=== PATIENT | male | born 1965 | race Caucasian/White ===

== ENCOUNTER 2023-05-28 11:11 | Inpatient (IN) | payer OTHER ==
[2023-05-28 11:55] VITALS: BMI 27.7
[2023-05-28] MEDS ORDERED: POLYETHYLENE GLYCOL (HEALTHYLAX) 3350 17 GM PACKET PO PRN (13:52)
[2023-05-28] MEDS ORDERED: IBUPROFEN 600 MG TABLET (FP) PO PRN (13:52)
[2023-05-28] MEDS ORDERED: ONDANSETRON *ODT* 4 MG TABLET SL PRN (13:52)
[2023-05-28] MEDS ORDERED: ACETAMINOPHEN 325 MG TABLET (FP) PO PRN (13:52)
[2023-05-28] MEDS ORDERED: NALOXONE HCL (KLOXXADO) 8 MG SPRAY NS PRN (13:52)
[2023-05-28] MEDS ORDERED: MAGNESIUM HYDROX 2400MG/30ML ORAL SUSPENSION 30 ML CUP PO PRN (13:52)
[2023-05-28] MEDS ORDERED: DICYCLOMINE HCL 10 MG CAPSULE PO PRN (13:52)
[2023-05-28] MEDS ORDERED: BENZONATATE 200 MG CAPSULE PO PRN (13:52)
[2023-05-28] MEDS ORDERED: guaiFENesin 600 MG TABLET.ER (FP) PO PRN (13:52)
[2023-05-28] MEDS ORDERED: BENZOCAINE/MENTHOL (CHLORASEPTIC ) LOZENGE MM PRN (13:52)
[2023-05-28] MEDS ORDERED: NICOTINE POLACRILEX 2 MG GUM BUC PRN (13:52)
[2023-05-28] MEDS ORDERED: LOPERAMIDE HCL 2 MG CAPSULE PO PRN (13:52)
[2023-05-28] MEDS ORDERED: IBUPROFEN 400 MG TABLET (FP) PO PRN (13:52)
[2023-05-28] MEDS ORDERED: MAG HYDROX/AL HYDROX/SIMETH 30 ML UNIT-DOSE CUP PO PRN (13:52)
[2023-05-28] MEDS ORDERED: BISMUTH SUBSALICYLATE 262 MG/15 ML BTL PO PRN (13:52)
[2023-05-28] MEDS ORDERED: NALOXONE HCL 0.4 MG/ML VIAL IM PRN (13:52)
[2023-05-28] MEDS: THIAMINE HCL 100 MG TABLET (FP) PO SCH (22:06)
[2023-05-28] MEDS: MELATONIN 5 MG TABLETS PO SCH (22:06)
[2023-05-29] MEDS: PRENATAL VITAMINS W/ FOLIC ACID TABLET (FP) PO SCH (10:24)
[2023-05-29] MEDS: METHOCARBAMOL 500 MG TABLET PO PRN (10:24)
[2023-05-29] MEDS: NICOTINE 21 MG/24 HOURS TOPICAL PATCH TD SCH (10:24)
[2023-05-29 11:01] LABS: CHLORIDE 105 mmol/L (98-107); POTASSIUM 3.7 mmol/L (3.5-5.1); SODIUM 136 mmol/L (136-145)
[2023-05-29 11:03] LABS: HEMATOCRIT 38.6 % (35.4-49); HEMOGLOBIN 13.4 GM/dL (11.7-16.9); MCH 32.4 pg (25.7-33.7); MCHC 34.8 g/dl (32.0-35.9); MEAN PLT VOLUME 9.9 fl (7.5-11.1); PLATELET COUNT 164 10^3/uL (134-434); RBC 4.15 M/mm3 (4.00-5.60); RDW 14.2 % (11.9-15.9); WHITE BLOOD COUNT 5.2 K/mm3 (4.0-10.0)
[2023-05-29 11:07] LABS: ALBUMIN 3.3 g/dl (3.4-5.0); ANION GAP 6 mmol/L (4-13); CALCIUM 8.3 mg/dL (8.5-10.1); CO2 26 mmol/L (21-32); GLUCOSE,RANDOM 97 mg/dL (74-106)
[2023-05-29 11:09] LABS: CREATININE 0.7 mg/dL (0.55-1.3); SGOT/AST 30 U/L (15-37)
[2023-05-29 11:11] LABS: BILIRUBIN,TOTAL 1.4 mg/dL (0.2-1); SGPT/ALT 40 U/L (13-61); TOT PROT 6.1 g/dl (6.4-8.2)
[2023-05-29 11:12] LABS: ALK PHOS 102 U/L (45-117)
[2023-05-29] MEDS: THIAMINE HCL 100 MG TABLET (FP) PO SCH (22:09)
[2023-05-29] MEDS: MELATONIN 5 MG TABLETS PO SCH (22:10)
[2023-05-30] MEDS: PRENATAL VITAMINS W/ FOLIC ACID TABLET (FP) PO SCH (10:46)
[2023-05-30] MEDS: NICOTINE 21 MG/24 HOURS TOPICAL PATCH TD SCH ×2 (10:46→10:47)
[2023-05-30 21:18] VITALS: RESP 17
[2023-05-30] MEDS: METHOCARBAMOL 500 MG TABLET PO PRN (22:19)
[2023-05-30] MEDS: MELATONIN 5 MG TABLETS PO SCH (22:19)
[2023-05-30] MEDS: THIAMINE HCL 100 MG TABLET (FP) PO SCH (22:19)
[2023-05-31 06:06] VITALS: BP 122/80; PULSE 79; TEMP 98
== END 2023-05-31 06:45 | disposition other institution (70) | DRG 775 ==
LOC: YASAS 11:11 → Y6N 14:45
PROVIDERS: ADMIT Allergy & Immunology; ATTEND Surgery
PROC: HZ2ZZZZ Detoxification Services for Substance Abuse Treatment (ICD-10-PCS; principal; 2023-05-28)
DX: F10.20 Alcohol dependence, uncomplicated (principal); F17.210 Nicotine dependence, cigarettes, uncomplicated; Z59.00 Homelessness unspecified
CPT/HCPCS: 36415; 80053; 80307; 85027; 86780; 87635; 87811